=== PATIENT | male | born 1955 | race Caucasian/White ===

== ENCOUNTER 2022-08-26 12:34 | Emergency (ER) | payer OTHER, MEDICARE, SELFPAY ==
--- NOTE | 2022-08-26 12:42 | ED.URI ---
HPI - URI/Sore Throat General Chief Complaint: Upper Respiratory Infection Stated Complaint: covid sx Time Seen by Provider: 08/26/22 12:42 Source: patient Mode of arrival: ambulatory Limitations: no limitations History of Present Illness HPI Narrative: Mr. Oakley is a 67-year-old male patient presenting to the clinic today with possible COVID symptoms. He reports he is having nasal congestion, sore throat, headache, body aches, and fever since last night. He contacted his PCP and they directed him to the hospital to get a COVID test. He denies any shortness of breath or chest pain. MD elicited complaint: fever, sore throat, nasal congestion and other (Headache) Related Data Allergies Allergy/AdvReac Type Severity Reaction Status Date / Time allopurinol Allergy Unknown Unknown Verified 08/26/22 12:47 Review of Systems Review of Systems: Pertinent positives per HPI. Patient denies any fever, chills, rash, headache, visual changes, dizziness, cough, shortness of breath, chest pain, palpitations, nausea, vomiting, diarrhea, constipation, abdominal pain, or any urinary issues. [facility] Social History Social History Smoking status: Never smoker Second hand tobacco smoke exposure: No Smoking end date: 06/22/84 Alcohol intake: never Comments At the time of my signature, I reviewed and agree with the nursing past medical, surgical, social, and family history. There is no relevant family history pertinent to the patient complaint. Exam Narrative: General: Well-developed, obese, in no apparent distress Head: Normocephalic, atraumatic Eyes: Pupils equally round and reactive to light bilaterally, EOM intact, sclera and conjunctive clear, no discharge, lids normal Ears: TMs intact and clear, ear canals clear, no drainage, grossly hearing normal. Nose: Nares patent, clear nasal discharge, no inflammation, no sinus tenderness. Mouth: Oral pharynx without lesions or masses, good dentition, MMM. Postnasal drip Neck: Supple, trachea midline, no enlargement of anterior or posterior cervical nodes, no thyroid masses or goiter palpable. Cardio: Regular rate and rhythm, s1 and s2 normal, no murmur appreciated. Resp: Clear to auscultation bilaterally, no rhonchi, rales, wheezing or rubs Course Course Emergency Course: Portions of this record may have been created with voice recognition software. Level of Care: Express Care Visit Vital Signs Vital signs: Vital Signs Temperature 38.5 C H 08/26/22 12:47 Pulse Rate 93 08/26/22 12:47 Respiratory Rate 16 08/26/22 12:47 Blood Pressure 117/91 H 08/26/22 12:47 Pulse Oximetry 99 08/26/22 12:47 Oxygen Delivery Room Air 08/26/22 12:47 Temperature 38.5 C H 08/26/22 12:48 Pulse Rate 93 08/26/22 12:48 Respiratory Rate 16 08/26/22 12:48 Blood Pressure 117/91 H 08/26/22 12:48 Pulse Oximetry 99 08/26/22 12:48 Oxygen Delivery Room Air 08/26/22 12:48 Vital signs reviewed MDM - URI/Sore Throat MDM Narrative Medical decision making narrative: At the time of visit patient is resting comfortably on the exam table pain. COVID, flu, and strep test were obtained. Strep and flu testing was negative COVID testing was positive in the clinic today. Prescription for molnupiravir was sent to the pharmacy and supportive measures were discussed with the patient he voiced understanding discharge instructions and agrees to treatment plan Differential Diagnosis Differential diagnosis: Likely upper respiratory infection, sinusitis, viral infection, influenza, pharyngitis and other (COVID) Lab Data Labs: Lab Results 08/26/22 Range/Units 12:55 POC SARS CoV-2 Ag Positive (Negative) Influenza A Screen Negative Reference Range: Negative Influenza B Screen Negative Referen
[2022-08-26 12:47] VITALS: BP 117/91; PULSE 93; RESP 16; TEMP 38.5; O2SAT 99
[2022-08-26 12:48] VITALS: BP 117/91; PULSE 93; RESP 16; TEMP 38.5; O2SAT 99
== END 2022-08-26 13:18 | disposition home or self-care (01) ==
PROVIDERS: Emergency Provider Nurse Practitioner Family; PCP Internal Medicine
DX: U07.1 COVID-19 (principal); E78.5 Hyperlipidemia, unspecified
CPT/HCPCS: 87081; 87426; 87804; 87880; 99213; C9803; G0463

== ENCOUNTER 2022-10-15 10:54 | Emergency (ER) | payer OTHER, MEDICARE, SELFPAY ==
[2022-10-15 11:00] VITALS: BP 114/86; PULSE 110; RESP 18; TEMP 38.1; O2SAT 99
--- NOTE | 2022-10-15 11:03 | PC.NURSE ---
in br to obtain ua spec.
--- NOTE | 2022-10-15 11:42 | ED.MALEGU ---
HPI - Male Genitourinary General Chief complaint: Urogenital-Male Stated complaint: UTI Time Seen by Provider: 10/15/22 11:27 Source: patient, RN notes reviewed and other (Blood work from yesterday.) Mode of arrival: ambulatory Limitations: no limitations History of Present Illness HPI Narrative: Patient presents today complaining of 2 day history of dysuria, frequency, headache, back pain, nausea. Patient was sent to the outpatient lab yesterday for some blood work. He was subsequently called and told he had a, ?swollen prostate. ? He was then told today to come to urgent care for medication. Upon arrival today he had temp of 100.5? and pulse of 110. Patient has history of kidney stones, but states these current symptoms are not similar. Denies history of prostatitis. Related Data Allergies Allergy/AdvReac Type Severity Reaction Status Date / Time allopurinol Allergy Unknown Unknown Verified 10/15/22 10:57 Review of Systems Review of Systems: CONSTITUTIONAL: Denies body aches, fever, chills, or sweats. EYES: Denies visual changes, redness, or discharge. ENT: Denies rhinorrhea, congestion, sore throat, or otalgia. CARDIOVASCULAR: Denies chest pain, palpitations, or edema. RESPIRATORY: Denies cough or dyspnea. GASTROINTESTINAL: Denies abdominal pain, vomiting, or diarrhea.+ nausea GENITOURINARY:+ dysuria, frequency SKIN: Denies rash, itching, or wounds. MUSCULOSKELETAL: Denies joint pain, or myalgia.+ neck pain NEUROLOGIC: Denies numbness, tingling, or weakness.+ headache PSYCH: Denies depression or anxiety. [facility] Past Medical History Medical History (Updated 10/15/22 @ 11:51 by Laura Martines, PLASTICATOR, ) History of kidney stones Social History Social History Smoking status: Never smoker Second hand tobacco smoke exposure: No Smoking end date: 06/22/84 Alcohol intake: never Lack of Transportation: No Lack of Food: Sometimes True Current Housing: Decline to Answer Concerned About Future Housing: Decline to Answer Difficulty Paying Gas/Electric Bills: Decline to Answer Difficulty Paying for Meds: Decline to Answer Currently Unemployed: Decline to Answer Education: Grade School Difficulty w/ Childcare or Family Care: No Comments At time of signature, I have reviewed and agree with nursing past medical, surgical, social and family history unless otherwise noted. Please see nursing chart for further information. There is no relevant family history pertinent to the presenting complaint Exam Narrative: GENERAL: Mildly ill-appearing, well-nourished, and in no acute distress. HEAD: Normocephalic, atraumatic. EYES: EOMI. No redness or drainage. Conjunctivae normal. ENT: Mucous membranes pink and moist. NECK: Normal AROM. CHEST: No respiratory distress. Clear to auscultation. HEART: Regular rhythm. + tachycardia. No murmur appreciated. Normal peripheral pulses. ABDOMEN: Soft, nontender, nondistended, normal active bowel sounds.-CVAT EXTREMITIES: Normal range of motion. No edema. SKIN: Warm, dry, no rash. Capillary refill normal. Normal skin turgor. NEURO: No focal deficits. Alert and oriented x3. Gait steady. PSYCH: Normal affect. No signs of depression or anxiety. Course Course Level of Care: Express Care Visit Vital Signs Vital signs: Vital Signs Temperature 100.5 F H 10/15/22 11:00 Pulse Rate 110 H 10/15/22 11:00 Respiratory Rate 18 10/15/22 11:00 Blood Pressure 114/86 10/15/22 11:00 Pulse Oximetry 99 10/15/22 11:00 Oxygen Delivery Room Air 10/15/22 11:00 Temperature 100.5 F H 10/15/22 11:00 Pulse Rate 110 H 10/15/22 11:00 Respiratory Rate 18 10/15/22 11:00 Blood Pressure 114/86 10/15/22 11:00 Pulse Oximetry 99 10/15/22 11:00 Oxygen Delivery Room Air 10/15/22 11:00 Reviewed Transfer Transfered to: [facility] Transportation: Other (Private vehicle) Transf
== END 2022-10-15 11:43 | disposition short-term general hospital (02) ==
PROVIDERS: Emergency Provider Nurse Practitioner; PCP Internal Medicine
DX: N39.0 Urinary tract infection, site not specified (principal); Z87.442 Personal history of urinary calculi
CPT/HCPCS: 81003; 99212; G0463

== ENCOUNTER 2022-10-15 12:02 | Emergency (ER) | payer OTHER, MEDICARE, SELFPAY ==
[2022-10-15] VITALS (8 sets, daily range): BP systolic 104–155; BP diastolic 54–72; PULSE 103–109; RESP 16–17; TEMP 37.7; O2SAT 92–100
--- NOTE | ~2022-10-15 | CT_ITS ---
EXAMINATION: CT abdomen pelvis w con DATE: 10/15/2022 13:40 INDICATION: Dysuria. Fever. TECHNIQUE: Computed tomography (CT) of the abdomen and pelvis was performed with 100 mL Omnipaque 350 intravenous contrast. Automated exposure control and iterative reconstruction technique were employe d. The dose-length product was 1111.22 mGy-cm. COMPARISON: None. FINDINGS: The visualized portions of the lung bases demonstrate mild atelectasis. There is a 6 mm nod ule in right lower lobe. No pleural effusion. The heart size is normal. There are coronary artery kathleen cifications. No pericardial effusion. There is diffuse hepatic steatosis. The gallbladder is distende d. The spleen, pancreas, and adrenal glands are normal. There are cysts in the kidneys measuring up t o 9 mm on the right. The prostate is moderately enlarged. There are bilateral inguinal hernias contai kai fat. There is diverticulosis of the colon without evidence of diverticulitis. The appendix is no rmal. There are no dilated loops of bowel. There are no pathologically enlarged lymph nodes. There is no free intraperitoneal fluid. There is calcified atherosclerosis of the aorta and many of the other arteries. There is moderate lumbar spondylosis. IMPRESSION: 1. Gallbladder distention, which may be secondary to fasting. Correlate with physical exam to exclude acute cholecystitis. 2. Diffuse hepatic steatosis. 3. 6 mm pulmonary nodule, probably benign. Consider noncontrast low-dose chest CT in 6-12 months. Reviewed, dictated and finalized at location [facility]. IMPRESSION: 1. Gallbladder distention, which may be secondary to fasting. Correlate with ph ysical exam to exclude acute cholecystitis. 2. Diffuse hepatic steatosis. 3. 6 mm pulmonary nodule, probably benign. Consider noncontrast low-dose chest CT in 6-12 months.
--- NOTE | 2022-10-15 12:16 | PC.NURSE ---
Wed evening, pt states he starting urinating frequently. States when urinating he has burning. Pt states he started feeling nauseous while at urgent care today. Also c/o a fever and headache. Pt admits to left flank pain, but also has chronic lower back pain.
[2022-10-15 12:22] LABS: Appearance Urine Turbid (Clear); Bacteria Urine 1+ /hpf; Bilirubin Urine Negative (Negative); Blood Urine 2+ (Negative); Color Urine Dark Yellow (Yellow); Glucose Urine UA Negative (Negative); Ketones Urine 1+ mg/dL (Negative); Leukocyte Esterase Ur 3+ LEU/UL (Negative); Nitrate Urine Negative (Negative); Non Pathogenic Casts 0-2; Protein Urine 2+ mg/dL (Negative); Specific Grav Ur 1.022 (1.001-1.035); Squamous Epithelial Cell Urine None seen /hpf (Few); WBC Urine >100 /hpf
[2022-10-15 12:32] LABS: Add Urine Microscopic? YES
--- NOTE | 2022-10-15 12:46 | ED.MALEGU ---
HPI - Male Genitourinary General Chief complaint: Urogenital-Male Stated complaint: UTI Time Seen by Provider: 10/15/22 12:28 History of Present Illness HPI Narrative: 67-year-old male history of hypertension dyslipidemia presents to the emergency room for evaluation of dysuria accompanied with a fever and lower abdominal pain. Patient was seen in urgent care earlier today and was told to come here for further evaluation. Patient states he does have a history of kidney stones, however states that this feels different today. Related Data Allergies Allergy/AdvReac Type Severity Reaction Status Date / Time allopurinol Allergy Unknown Unknown Verified 10/15/22 10:57 Review of Systems Review of Systems: CONSTITUTIONAL: Fever per HPI EYES: Denies visual changes, redness, or discharge. ENT: Denies rhinorrhea, congestion, sore throat, or otalgia. CARDIOVASCULAR: Denies chest pain, palpitations, or edema. RESPIRATORY: Denies cough or dyspnea. GASTROINTESTINAL: Per HPI, abdominal pain constipation GENITOURINARY: Denies dysuria or hematuria. SKIN: Denies rash or itching. MUSCULOSKELETAL: Denies back pain, joint pain, or myalgia. NEUROLOGIC: Denies headache, numbness, dizziness, or weakness. PSYCHIATRIC: Denies anxiety or depression. [facility] Past Medical History Medical History History of kidney stones Social History Social History Smoking status: Never smoker Second hand tobacco smoke exposure: No Smoking end date: 06/22/84 Alcohol intake: never Lack of Transportation: No Lack of Food: Sometimes True Current Housing: Decline to Answer Concerned About Future Housing: Decline to Answer Difficulty Paying Gas/Electric Bills: Decline to Answer Difficulty Paying for Meds: Decline to Answer Currently Unemployed: Decline to Answer Education: Grade School Difficulty w/ Childcare or Family Care: No Exam Narrative: GENERAL: Well-appearing, well-nourished, no physical limitations, and in no acute distress. HEAD: Normocephalic, atraumatic. EYES: Conjunctivae normal, PERRLA and EOMI. CHEST: Clear to auscultation. No respiratory distress. No wheezes rales or rhonchi. HEART: Regular rate and rhythm. No murmur heard. Normal peripheral pulses. ABDOMEN: Soft, suprapubic tenderness, nondistended, normal active bowel sounds. BACK: No CVA tenderness EXTREMITIES: Normal range of motion. No edema. No clubbing or cyanosis SKIN: Warm, dry, no rash. No noted wounds NEURO: No focal deficits. Alert and oriented x3. MAEW. CN's II-XI intact bilaterally, normal gait PSYCH: Cooperative. Normal mood and affect. Course Vital Signs Vital signs: Vital Signs Temperature 37.7 C H 10/15/22 12:03 Pulse Rate 109 H 10/15/22 12:03 Respiratory Rate 17 10/15/22 12:03 Blood Pressure 155/72 H 10/15/22 12:03 Pulse Oximetry 100 10/15/22 12:03 Oxygen Delivery Room Air 10/15/22 12:03 Temperature 37.7 C H 10/15/22 12:03 Pulse Rate 109 H 10/15/22 12:03 Respiratory Rate 17 10/15/22 12:03 Blood Pressure 137/72 10/15/22 13:01 Pulse Oximetry 97 10/15/22 13:15 Oxygen Delivery Room Air 10/15/22 12:03 MDM - Male Genitourinary MDM Narrative Medical decision making narrative: 67-year-old male presented to the emergency room from urgent care for evaluation of dysuria and fever. Patient was found to have an elevated white count and an elevated PSA. CT scan shows no acute intra-abdominal abnormalities. Patient likely has a prostatitis. We will start patient on Cipro twice daily for the next 28 days and follow-up with urology. Lab Data 10/15/22 12:33 10/15/22 12:33 Labs: Lab Results 10/15/22 10/15/22 Range/Units 12:09 12:33 WBC 12.0 H (4.5-10.0) K/mm3 RBC 4.57 L (4.6-6.20) M/mm3 Hgb 13.5 L (14.0-18.0) g/dL Hct 41.5 L (42.0-52.0) % MCV
[2022-10-15] MEDS: SODIUM CHLORIDE 0.9% IV 1,000 ML 999 ML IV CONT (12:51)
[2022-10-15] MEDS: ONDANSETRON INJ 4 MG/2 ML VIAL IV PUSH (12:53)
[2022-10-15 12:55] LABS: Basophils Percent Auto 0.3 % (0.2-1.2); Eosinophils Absolute Auto 0.1 K/mm3 (0-0.3); Eosinophils Percent Auto 1.2 % (0-4.4); Hematocrit 41.5 % (42.0-52.0); Hemoglobin 13.5 g/dL (14.0-18.0); Immature Granulocyte Absolute 0.07 K/mm3 (0.00-0.031); Immature Granulocyte Percent A 0.6 % (0-0.5); Lymphocytes Absolute Auto 0.65 K/mm3 (0.9-3.2); Lymphocytes Percent Auto 5.4 % (18.3-44.2); Mean Corpuscular HGB Conc 32.5 g/dl (32-36); Mean Corpuscular Hemoglobin 29.5 pg (26-34); Mean Corpuscular Volume 90.8 fl (80-100); Mean Platelet Volume 8.8 fl (7.4-10.4); Monocytes Absolute Auto 0.8 K/mm3 (0.1-0.6); Monocytes Percent Auto 6.8 % (2.6-8.5); Neutrophils Absolute Auto 10.3 K/mm3 (1.3-6.7); Neutrophils Percent Auto 85.7 % (45.5-73.1); Platelet Count Result 147 k/mm3 (150-375); Red Blood Count 4.57 M/mm3 (4.6-6.20); Red Cell Distribution Width 13.5 % (11.5-14.5)
[2022-10-15 13:04] LABS: Alanine Aminotransferase 25 U/L (6-50); Albumin Level 4.7 g/dL (3.5-5.1); Alkaline Phosphatase 74 U/L (38-126); Anion Gap 11 mmol/L (8-16); Aspartate Amino Transferase 20 U/L (17-59); Bilirubin,Total 1.7 mg/dL (0.2-1.3); Blood Urea Nitrogen 19 mg/dL (9-20); Calcium 9.4 mg/dL (8.4-10.2); Carbon Dioxide 28 mmol/L (22-30); Chloride 99 mmol/L (98-107); Estimated CRCL calculation 55 ml/min; Estimated Glomerular Filt Rate 55; Glucose 159 mg/dL (65-110); Potassium 4.2 mmol/L (3.4-5.0); Sodium 138 mmol/L (137-145)
[2022-10-15] MEDS: ACETAMINOPHEN 500 MG TABLET 1000 MG PO (14:52)
[2022-10-15] MEDS: CIPROFLOXACIN 400 MG/D5W 200ML 200 ML 200 MG IVPB (14:53)
== END 2022-10-15 16:17 | disposition home or self-care (01) ==
PROVIDERS: Emergency Medicine; Emergency Provider Nurse Practitioner Family; PCP Internal Medicine
DX: N41.9 Inflammatory disease of prostate, unspecified (principal); Z87.442 Personal history of urinary calculi; R91.1 Solitary pulmonary nodule; K76.0 Fatty (change of) liver, not elsewhere classified; K82.8 Other specified diseases of gallbladder; Z87.891 Personal history of nicotine dependence
CPT/HCPCS: 36415; 74177; 80053; 81001; 81003; 85025; 87077; 87086; 87186; 96361; 96365; 96375; 99284; A9270; J0744; J2405; J7030; Q9967

== ENCOUNTER → 2023-03-24 08:09 | Outpatient (CLI) | payer OTHER, MEDICARE, SELFPAY ==
--- NOTE | ~2023-03-24 | CT_ITS ---
CT Scan of the Chest without Contrast: Clinical Indication: Solitary pulmonary nodule Technique: Contiguous sections were acquired throughout the chest without intravenous contrast. Dose reduction technique was used on this scan by utilizing automated exposure control and iterative recon struction technique. The dose-length product (DLP) was 177.23 mGy-cm. COMPARISON: 10/15/2022 Findings: There is no evidence of any significant mediastinal, hilar or axillary lymphadenopathy. The mediastin al soft tissues appear normal. There is no evidence of pleural or pericardial effusion. There is mild peripheral chronic interstitial thickening. There is mild patchy haziness at the right lung base. There is a probable 6 mm right basilar pulmonary nodule (axial image 54). Images through the upper abdomen reveal no abnormalities. Impression: 6 mm right basilar pulmonary nodule, unchanged from prior abdominal pelvic CT. Mild peripheral chronic interstitial change. Reviewed, dictated and finalized at [facility]. Impression: 6 mm right basilar pulmonary nodule, unchanged from prior abdominal pelvic CT. Mild peripheral chronic interstitial change.
== END ==
PROVIDERS: PCP Internal Medicine; Visit Provider Internal Medicine
DX: R91.1 Solitary pulmonary nodule (principal)
CPT/HCPCS: 71250

== ENCOUNTER 2023-05-26 00:43 | Day surgery (SDC) | payer MEDICARE, SELFPAY ==
[2023-05-11 14:54] VITALS: BMI 33.7
--- NOTE | 2023-05-22 11:14 | SUR.PREOP ---
Patient called regarding upcoming procedure. Reviewed preop instructions, appointment times, and procedure prep.
[2023-05-26 09:19] VITALS: BP 144/94; PULSE 83; RESP 20; TEMP 36.1; O2SAT 99; BMI 35.7
[2023-05-26] MEDS: LACTATED RINGERS 1,000 ML 150 ML IV CONT (09:30)
--- NOTE | 2023-05-26 10:21 | PM.HPGS ---
History of Present Illness History of Present Illness Consent: Risks, benefits, and alternatives have been discussed and questions answered. Patient agrees to proceed with procedure. Chief complaint: positive cologuard test Narrative: Jacek Oakley Sr. is a 67 year old male Presents for screening colonoscopy. Patient has recent Cologuard test was performed found to be positive. Patient reports his current weight appetite bowel movements are normal. Patient denies abdominal pain. He has had no bleeding. Family history noncontributory. Previous colonoscopy in 2009 was unremarkable. [facility] Past Medical History Medical History History of kidney stones Social History Social History Smoking status: Never smoker Second hand tobacco smoke exposure: No Smoking end date: 06/22/84 Alcohol intake: never Substance use type: does not use Lack of Transportation: No Lack of Food: Sometimes True Current Housing: Decline to Answer Concerned About Future Housing: Decline to Answer Difficulty Paying Gas/Electric Bills: Decline to Answer Difficulty Paying for Meds: Decline to Answer Currently Unemployed: Decline to Answer Education: Grade School Difficulty w/ Childcare or Family Care: No Living arrangements: other Additional living arrangements comments: with sp Meds Home Medications and Allergies Home Medications Medication Instructions Recorded Confirmed Type atorvastatin 40 mg tablet 40 mg PO DAILY #90 tabs 03/18/23 05/11/23 Rx lisinopril 10 mg tablet 10 mg PO DAILY #90 tabs 03/18/23 05/11/23 Rx colchicine 0.6 mg tablet (Colcrys) 0.6 mg PO .COMPLEX PRN gout 05/11/23 05/11/23 History indomethacin 50 mg capsule 50 mg PO TID PRN gout 05/11/23 05/11/23 History Allergies Allergy/AdvReac Type Severity Reaction Status Date / Time No Known Allergies Allergy Verified 05/26/23 09:17 Vital Signs Vital Signs - 24 hr 05/26/23 09:19 Temperature 97 F L Pulse Rate 83 Respiratory Rate 20 Blood Pressure 144/94 H Pulse Oximetry 99 Oxygen Delivery Room Air Assessment and Plan Assessment and plan (1) Positive colorectal cancer screening using Cologuard test: Code(s): R19.5 - Other fecal abnormalities Status: Acute Assessment and Plan: Patient presents today for screening colonoscopy because of positive Cologuard test.
--- NOTE | 2023-05-26 10:35 | WPDANESEPPF ---
Anes - Initial Pre Proc Eval Procedure: Operation Date: 05/26/23 10:00 Proposed Procedures p Colonoscopy - Tyree Johnson MD Date/Time: 05/26/23 10:35 Surgeon: Tyree Johnson MD Pre Op Diagnosis: positive cologuard test Patient Data Age: 67 Gender: M Height: 1.7 m Weight: 103.6 kg Last Vital Signs Temp 97 F L 05/26/23 09:19 Pulse 83 05/26/23 09:19 Resp 20 05/26/23 09:19 BP 144/94 H 05/26/23 09:19 Pulse Ox 99 05/26/23 09:19 O2 Del Method Room Air 05/26/23 09:19 Allergies Allergy/AdvReac Type Severity Reaction Status Date / Time No Known Allergies Allergy Verified 05/26/23 09:17 Home Medications Medication Instructions Recorded Confirmed Type atorvastatin 40 mg tablet 40 mg PO DAILY #90 tabs 03/18/23 05/11/23 Rx lisinopril 10 mg tablet 10 mg PO DAILY #90 tabs 03/18/23 05/11/23 Rx colchicine 0.6 mg tablet (Colcrys) 0.6 mg PO .COMPLEX PRN gout 05/11/23 05/11/23 History indomethacin 50 mg capsule 50 mg PO TID PRN gout 05/11/23 05/11/23 History Patient hx anesthesia problems: none Family hx anesthesia problems: none Results Review: All pre-operative results and documents have been reviewed as part of the pre-operative evaluation. [facility] Past Medical History Medical History History of kidney stones Social History Social History Smoking status: Never smoker Second hand tobacco smoke exposure: No Smoking end date: 06/22/84 Alcohol intake: never Substance use type: does not use Lack of Transportation: No Lack of Food: Sometimes True Current Housing: Decline to Answer Concerned About Future Housing: Decline to Answer Difficulty Paying Gas/Electric Bills: Decline to Answer Difficulty Paying for Meds: Decline to Answer Currently Unemployed: Decline to Answer Education: Grade School Difficulty w/ Childcare or Family Care: No Living arrangements: other Additional living arrangements comments: with sp Anes - Eval Final PreProcedure Day of Procedure 05/26/23 10:35 Patient weight: obese Heart: regular rate and rhythm Lungs: clear to auscultation Airway: Mallampati scale class III Neurological: alert and oriented Last oral intake: >/= 8 hours ASA classification: III Emergent: no Anesthetic plan: proceed Anesthesia type and monitoring: general GIVS and standard monitoring Results Review: All pre-operative results and documents have been reviewed as part of the pre-operative evaluation. Informed Consent: The patient's anesthetic plan and its attendant risks and benefits were discussed with the patient/family/POA. Questions were solicited and answers provided to the satisfaction of the patient/family/POA.
[2023-05-26 11:16] VITALS: BP 134/89; PULSE 78; RESP 16; O2SAT 99
[2023-05-26 11:26] VITALS: BP 128/84; PULSE 70; RESP 20; O2SAT 99
[2023-05-26 11:36] VITALS: BP 130/84; PULSE 74; RESP 20; O2SAT 99
== END 2023-05-26 11:41 | disposition home or self-care (01) ==
PROVIDERS: PCP Internal Medicine; Visit Provider Internal Medicine Gastroenterology
PROC: 0DJD8ZZ Inspection of Lower Intestinal Tract, Via Natural or Artificial Opening Endoscopic (ICD-10-PCS; CPT 45378; principal; 2023-05-26 10:00)
DX: R19.5 Other fecal abnormalities (principal); D12.4 Benign neoplasm of descending colon; K64.8 Other hemorrhoids; K57.30 Diverticulosis of large intestine without perforation or abscess without bleeding
CPT/HCPCS: 45385; 88305; J2704; J7120

== ENCOUNTER 2023-09-28 16:01 | Emergency (ER) | payer MEDICARE, SELFPAY ==
--- NOTE | ~2023-09-28 | XR_ITS ---
EXAMINATION: XR forearm RT 2V DATE: 09/28/2023 16:47 INDICATION: Right radius fracture. TECHNIQUE: 2 views of right forearm were obtained. COMPARISON: Right wrist radiographs 09/28/2023 FINDINGS: There is an oblique fracture of distal radial diaphysis. The distal fracture fragment demon strates 4 mm radial displacement and 2 mm palmar displacement. 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 No elbow joint effusion. A 3 mm density overlying the fing ers may be a foreign body or outside of the patient. IMPRESSION: 1. Oblique fracture of distal radial diaphysis. Reviewed, dictated and finalized at location A.
--- NOTE | ~2023-09-28 | XR_ITS ---
EXAMINATION: XR wrist RT 2V DATE: 09/28/2023 16:21 INDICATION: Right wrist injury. TECHNIQUE: 2 views of right wrist were obtained. COMPARISON: None. FINDINGS: There is an oblique fracture of distal radial diaphysis. The distal fracture fragment demon strates one cortical width radial displacement, one cortical width dorsal displacement, and 16 degree s palmar angulation. There is mild osteoarthritis of triscaphe joint and first carpometacarpal joint. IMPRESSION: 1. Oblique fracture of distal radial diaphysis. Forearm radiographs are recommended. Reviewed, dictated and finalized at location A. IMPRESSION: 1. Oblique fracture of distal radial diaphysis. Forearm radiographs are recomme nded.
[2023-09-28 16:04] VITALS: BP 147/92; PULSE 97; RESP 16; TEMP 36.6; O2SAT 99
--- NOTE | 2023-09-28 16:05 | ED.WOUNDLAC ---
HPI - Wound/Laceration General Chief Complaint: Wound/Laceration Stated Complaint: laceration to right arm Time Seen by Provider: 09/28/23 16:05 Focused HPI: Jacek is a 68-year-old male patient presenting to the clinic today with complaints of a large laceration to the right wrist/distal forearm. He reports he was going outside to see the a clips when he fell and landed on some a rip jose has a large laceration gaping open to the right forearm with pain over the radius General: Well-developed, well nourished, in no apparent distress Head: Normocephalic, atraumatic. Cardio: Regular rate and rhythm, s1 and s2 normal, no murmur appreciated. Resp: Clear to auscultation bilaterally, no rhonchi, rales, wheezing or rubs. Integumentary: [place], warm, and dry, intact without lesion, no rashes. Approximately 2.5 cm gaping laceration to the distal right forearm/wrist, tender to palpation over this area Patient screened in triage and initial orders placed. Additional care and disposition to be based upon diagnostic testing and treatment. Source: patient Mode of arrival: ambulatory Limitations: no limitations Related Data Home Medications Medication Instructions Recorded Confirmed colchicine 0.6 mg tablet (Colcrys) 0.6 mg PO .COMPLEX PRN gout 05/11/23 09/21/23 indomethacin 50 mg capsule 50 mg PO TID PRN gout 05/11/23 09/21/23 Allergies Allergy/AdvReac Type Severity Reaction Status Date / Time No Known Allergies Allergy Verified 09/28/23 16:02 Review of Systems Review of Systems: Pertinent positives per HPI. Patient denies any fever, chills, rash, headache, visual changes, dizziness, cough, runny nose, sore throat, shortness of breath, chest pain, palpitations, nausea, vomiting, diarrhea, constipation, abdominal pain, or any urinary issues. [facility] Past Medical History Medical History History of kidney stones Social History Social History Smoking status: Never smoker Second hand tobacco smoke exposure: No Smoking end date: 06/22/84 Alcohol intake: never Substance use type: does not use Lack of Transportation: No Lack of Food: Sometimes True Current Housing: Decline to Answer Concerned About Future Housing: Decline to Answer Difficulty Paying Gas/Electric Bills: Decline to Answer Difficulty Paying for Meds: Decline to Answer Currently Unemployed: Decline to Answer Education: Grade School Difficulty w/ Childcare or Family Care: No Living arrangements: other Additional living arrangements comments: with sp Comments At the time of my signature, I reviewed and agree with the nursing past medical, surgical, social, and family history. There is no relevant family history pertinent to the patient complaint. Exam Narrative: General: Well-developed, well nourished, in no apparent distress Head: Normocephalic, atraumatic. Cardio: Regular rate and rhythm, s1 and s2 normal, no murmur appreciated. Resp: Clear to auscultation bilaterally, no rhonchi, rales, wheezing or rubs. Integumentary: [place], warm, and dry, intact without lesion, no rashes. Approximately 2.5 cm gaping laceration to the distal right forearm/wrist, tender to palpation over the distal radius Course Course Emergency Course: Portions of this record may have been created with voice recognition software. Vital Signs Vital signs: Vital signs reviewed MDM - Wound/Laceration MDM Narrative Medical decision making narrative: At the time of visit patient is resting comfortably on the exam table. Patient appears to be nontoxic. Labs: CBC shows white blood cell count of 8.6, H and H at 13.7 and 41.3, platelet count is 193, chemistry panel pending Diagnostics:X-ray of the right wrist shows an acute open oblique fracture of the distal radius with displacement. Medications given: Ancef 2 g IV, Tdap, m
[2023-09-28] MEDS: TETANUS,DIPHTHERIA,AC PERTUSSIS ADULT (0.5 ML) BOOSTRIX IM (16:11)
[2023-09-28] MEDS: ceFAZolin 2 GM/D5W 50 ML 2 GM/50 ML BAG IVPB (16:33)
[2023-09-28 16:35] LABS: Basophils Percent Auto 0.5 % (0.2-1.2); Eosinophils Absolute Auto 0.1 K/mm3 (0-0.3); Eosinophils Percent Auto 0.6 % (0-4.4); Hematocrit 41.3 % (42.0-52.0); Hemoglobin 13.7 g/dL (14.0-18.0); Immature Granulocyte Absolute 0.03 K/mm3 (0.00-0.031); Immature Granulocyte Percent A 0.3 % (0-0.5); Lymphocytes Absolute Auto 1.13 K/mm3 (0.9-3.2); Lymphocytes Percent Auto 13.2 % (18.3-44.2); Mean Corpuscular HGB Conc 33.2 g/dl (32-36); Mean Corpuscular Hemoglobin 29.3 pg (26-34); Mean Corpuscular Volume 88.2 fl (80-100); Monocytes Absolute Auto 0.5 K/mm3 (0.1-0.6); Monocytes Percent Auto 5.2 % (2.6-8.5); Neutrophils Absolute Auto 6.9 K/mm3 (1.3-6.7); Neutrophils Percent Auto 80.2 % (45.5-73.1); Platelet Count Result 193 k/mm3 (150-375); Red Blood Count 4.68 M/mm3 (4.6-6.20); White Blood Count 8.6 K/mm3 (4.5-10.0)
[2023-09-28] MEDS: ONDANSETRON INJ 4 MG/2 ML VIAL IV PUSH (17:07)
[2023-09-28] MEDS: MORPHINE SULFATE (*CRX) 4 MG/ML INJ IV PUSH (17:09)
--- NOTE | 2023-09-28 17:17 | PC.NURSE ---
Pt is being transfer to [facility] ER, transported by private vehicle. Pt offered ambulance, and pt refused ambulance.
== END 2023-09-28 17:49 | disposition short-term general hospital (02) ==
LOC: ANHED 16:50
PROVIDERS: Emergency Provider Nurse Practitioner Family; PCP Internal Medicine
DX: S52.591B Other fractures of lower end of right radius, initial encounter for open fracture type I or II (principal); Z87.442 Personal history of urinary calculi; W18.30XA Fall on same level, unspecified, initial encounter; Z23 Encounter for immunization
CPT/HCPCS: 29125; 36415; 73090; 73100; 85025; 90471; 90715; 96365; 96375; 99284; A4565; J0690; J2270; J2405

== ENCOUNTER 2024-11-09 08:27 | Outpatient (CLI) | payer MEDICARE, SELFPAY ==
--- NOTE | ~2024-11-09 | CT_ITS ---
CT Scan of the Chest without Contrast: Clinical Indication: Pulmonary nodule Technique: Contiguous sections were acquired throughout the chest without intravenous contrast. Dose reduction technique was used on this scan by utilizing automated exposure control and iterative recon struction technique. The dose-length product (DLP) was 109.83 mGy-cm. COMPARISON: 03/24/2023 Findings: There is no evidence of any significant mediastinal, hilar or axillary lymphadenopathy. The mediastin al soft tissues appear normal. There is no evidence of pleural or pericardial effusion. 3 mm right lower lobe pulmonary nodule present near the fissure (axial image 57). Probable mild perip heral chronic interstitial disease. Images through the upper abdomen reveal no abnormalities. Impression: 3 mm right lower lobe pulmonary nodule, probably decreased from prior exam. Mild peripheral chronic interstitial changes. Reviewed, dictated and finalized at [facility]. Impression: 3 mm right lower lobe pulmonary nodule, probably decreased from prior exam. Mild peripheral chronic interstitial changes.
== END 2024-11-09 08:28 | disposition home or self-care (01) ==
LOC: GOSHIMG 08:28
PROVIDERS: PCP Nurse Practitioner; Visit Provider Nurse Practitioner
DX: R91.1 Solitary pulmonary nodule (principal); J84.9 Interstitial pulmonary disease, unspecified
CPT/HCPCS: 71250

== ENCOUNTER 2025-05-10 08:09 | Outpatient (CLI) | payer MEDICARE, SELFPAY ==
--- NOTE | ~2025-05-10 | XR_ITS ---
EXAMINATION: XR knee RT 3V, 05/10/2025 8:16 [employer] HISTORY: M25.561 - Pain in right knee COMPARISON: No comparisons available. Findings: There is a small probable fractured osteophyte arising from the inferior patella, correlate for pain in this location. Small effusion noted. Soft tissues unremarkable. Impression: Please see above Reviewed, dictated and finalized at location P. [employer] Impression: Please see above
== END 2025-05-10 08:10 | disposition home or self-care (01) ==
PROVIDERS: PCP Nurse Practitioner; Visit Provider Nurse Practitioner
DX: M25.761 Osteophyte, right knee (principal); M25.461 Effusion, right knee; M25.561 Pain in right knee
CPT/HCPCS: 73562